=== PATIENT | male | born 1975 | race Caucasian/White ===

== ENCOUNTER 2018-10-30 18:53 | Observation (INO) ==
[2018-10-30] MEDS ORDERED: Sodium Chloride 0.9% 1,000 ML PRIMARY IV ONE ×2 (19:06→20:41)
[2018-10-30] MEDS ORDERED: ONDANSETRON 4 MG/2 ML VIAL IVP ONE (19:06)
[2018-10-30] MEDS ORDERED: FAMOTIDINE 20 MG/2 ML VIAL IVP ONE (19:06)
[2018-10-30 19:28] LABS: BASOPHILS # (AUTO) 0.03 10*3/UL; BASOPHILS % (AUTO) 0.3 % (0-1); EOSINOPHILS # (AUTO) 0.09 10*3/UL; EOSINOPHILS % (AUTO) 0.9 % (0-8); Hematocrit [HCT] 49.8 % (42.0-52.0); Hemoglobin [HGB] 18.3 g/dL (14.0-18.0); LYMPHOCYTES # (AUTO) 2.08 10*3/uL; MEAN CORPUSCULAR HGB CONC 36.7 g/dL (33-37); MEAN CORPUSCULAR VOLUME 76.1 FL (80-90); MEAN PLATELET VOLUME 9.6 FL (7.4-12.2); MONOCYTES # (AUTO) 0.85 10*3/UL (0.3-0.8); MONOCYTES % (AUTO) 8.6 % (5-15); NEUTROPHILS # (AUTO) 6.84 10*3/UL; RED BLOOD COUNT 6.54 10^6/uL (4.70-6.10)
[2018-10-30 19:33] LABS: PLATELET MORPHOLOGY COMMENT NORMAL MORPHOLOGY (NORM); RBC MORPHOLOGY COMMENT NORMAL MORPHOLOGY (NORM); WBC MORPHOLOGY COMMENT NORMAL MORPHOLOGY (NORM)
[2018-10-30 19:40] LABS: BUN/CREATININE RATIO 43.63 (6-20); SERUM ALBUMIN 5.6 g/dL (3.5-4.8)
--- NOTE | 2018-10-30 20:00 | PDOC ---
General Adult HPI - General Chief Complaint: Nausea / Vomiting / Diarrhea Stated Complaint: "I THINK I AM DEHYDRATED" Date Seen by Provider: 10/30/18 Time Seen by Provider: 19:00 Source: POSITIVE: Patient Exam Limitations: POSITIVE: No limitations Nurse's Notes Reviewed & Considered: Yes - History of Present Illness Initial Comment: The patient is a 43-year-old male who presents to the emergency department with increased nausea, lightheadedness and dehydration. 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 He underwent surgery and various treatments for this last year. For the past month or 6 weeks he has had increased nausea and vomiting. He has also lost approximately 30 pounds which he had previously gained back after all of his previous treatments. He was actually hospitalized at [facility] in [place] approximately 10 days ago. He underwent extensive workup there including imaging and endoscopies. He was told that they could not see any evidence of recurrent cancer. They thought maybe he had some type of strictures or partial obstruction causing his symptoms. He is scheduled to follow-up with his specialist in [place] tomorrow. The past couple of days however he has been feeling worse. He has been very lightheaded with standing and actually passed out once earlier today. He denies any increase in abdominal pain. He has not had any fevers or chills. He denies any urinary symptoms. He states he has had very little out in regard to bowel movements however his oral intake has been very minimal as well. Have you received a tetanus shot in the past 10 years?: Yes - Patient Home Medications Home Medications: Home Medications NK 10/30/18 - Patient Allergies Allergies/Adverse Reactions: Allergies Allergy/AdvReac Type Severity Reaction Status Date / Time No Known Allergies Allergy Verified 10/30/18 20:52 Past Medical History - shyla OLIVEIRA History: Denies History Cardiovascular History: Denies History Respiratory History: Denies History Gastrointestinal History: Denies History Genitourinary History: Denies History Endocrine History: Denies History Musculoskeletal History: Denies History Prosthesis or Implant: No Neurological History: Denies History Blood Disorders: Denies History Psychiatric History: Denies History History of Sexually Transmitted Diseases: No Cancer History: Other (please comment) History of MDRO: No History of Other Communicable Diseases: No In the Past 12 Months, Have Used or Abuse Any Substance: None Previous Surgical History: Yes Type / Date of Surgery: Mass removed the [id number] from the right side of the ABD. stent placement for ureter. colonoscopy Anesthesia Reactions: No Malignant Hyperthermia: No Significant Family History: No pertinent family hx Past Medical History Reviewed: Reviewed - No Changes ROS - Limitations ROS Limitations: No Limitations Constitution: DENIES: Chills, Fever Cardiovascular: REPORTS: Denies Cardiac Symptoms Respiratory: REPORTS: Denies Resp Symptoms Neurological: REPORTS: Denies Neuro Symptoms Gastrointestinal: REPORTS: Nausea, Vomitting. DENIES: Abdominal Pain, Diarrhea, Black Stools, Bloody Stools Endocrine: REPORTS: Fatigue Genitourinary: REPORTS: Denies Symptoms Eyes: REPORTS: Denies Symptoms ENT: REPORTS: Denies Symptoms Skin: DENIES: Rash General Adult Exam - General Appearance General Appearance: POSITIVE: Alert, Cooperative, No Acute Distress - HEENT HEENT: POSITIVE: Head Inspection Nml, Eyes Inspection Nml, Ears Inspection Nml, Nose Inspection Nml, Pharynx Inspect. Nml - Neck Neck: POSITIVE: Normal Inspection. NEGATIVE: Lymphadenopathy - Respiratory Respiratory: POSITIVE: No Respiratory Distress, Breath Sounds Normal - Cardiovascular Cardiovascular: POSITIVE: Regular Rate & Rhythm, No Murmur Peripheral Pulses: Dorsalis-pedis (R): 2+, Dorsalis-pedis (L): 2+ - Abdomen Abdomen: Soft: (All Quadrants), Denies Tenderness: (All Quadrants), No Guarding: (All Quadrants), No Rebound: (All Quadrants), No [place] Mass: (All Quadrants) Additional Abdominal Details: His abdomen is quite scaphoid, nontender on exam, bowel sounds are present. There is no palpable mass. - Skin Skin: POSITIVE: Normal Color, No Rash - Extremities Extremity: Normal ROM: (All Extremities), Normal Inspection: (All Extremities) - Neurological / Psychological Neurological: POSITIVE: Oriented X3, insulation worker interior surface Normal As Tested, Motor Normal, Sensation Normal General Adult Progress - Results Reviewed by me Xrays/CTs/US Reviewed by me: Yes Discussed with Radiologist: Yes Radiology Findings: CT the abdomen and pelvis shows a dilated duodenum suggestive of possible obstruction of the proximal small bowel, no other acute findings per radiologist. Lab Results Reviewed by Me: Yes Lab Results:: Laboratory Results 10/30/18 10/30/18 10/30/18 19:20 19:25 19:25 WBC 9.91 RBC 6.54 H Hgb 18.3 H Hct 49.8 MCV 76.1 L MCH 28.0 MCHC 36.7 RDW Std Deviation 39.3 RDW Coeff of Kimmy 14.1 Plt Count 260 MPV 9.6 Immature Gran % (Auto) 0.2 Neut % (Auto) 69.0 Lymph % (Auto) 21.0 Galax % (Auto) 8.6 Eos % (Auto) 0.9 Baso % (Auto) 0.3 Immature Gran # (Auto) 0.02 Neut # (Auto) 6.84 Lymph # (Auto) 2.08 Galax # (Auto) 0.85 H Eos # (Auto) 0.09 Baso # (Auto) 0.03 WBC Morphology Comment Normal morphology Plt Morphology Comment Normal morphology RBC Morph Comment Normal morphology VBG pH VBG pCO2 VBG HCO3 VBG Base Excess Sodium 129 L Potassium 2.5 L Chloride 64 L Carbon Dioxide 43 H Anion Gap 22 H BUN 96 H Creatinine 2.2 H Estimated GFR 33 BUN/Creatinine Ratio 43.63 H Glucose 129 H Calculated Osmolality 299.0 H Lactic Acid 2.8 H Calcium 10.1 Magnesium 3.5 H Total Bilirubin 4.9 H AST 98 H ALT 168 H Alkaline Phosphatase 260 H C-Reactive Protein 1.0 H Total Protein 10.0 H Albumin 5.6 H Globulin 4.4 H Albumin/Globulin Ratio 1.20 L Amylase 207 H Lipase 778 H Ur Collection Type Urine Color Urine Clarity Urine pH Ur Specific Goodman Urine Protein Urine Glucose (UA) Urine Ketones Urine Occult Blood Urine Nitrate Urine Bilirubin Urine Urobilinogen Ur Leukocyte Esterase Urine RBC Urine WBC Ur Squamous Epith Cells Ur Renal Epithelial Cell Urine Crystals Urine Bacteria Urine Casts Urine Mucus Urine Trichomonas Urine Yeast Ur Culture Indicated? 10/30/18 10/30/18 10/31/18 20:36 22:20 06:45 WBC 7.96 RBC 5.23 Hgb 14.7 Hct 41.5 L MCV 79.3 L MCH 28.1 MCHC 35.4 RDW Std Deviation 41.0 RDW Coeff of Kimmy 14.2 Plt Count 168 MPV 9.3 Immature Gran % (Auto) 0.1 Neut % (Auto) 68.8 Lymph % (Auto) 21.0 [place]ax % (Auto) 8.3 Eos % (Auto) 1.4 Baso % (Auto) 0.4 Immature Gran # (Auto) 0.01 Neut # (Auto) 5.48 Lymph # (Auto) 1.67 Galax # (Auto) 0.66 Eos # (Auto) 0.11 Baso # (Auto) 0.03 WBC Morphology Comment Normal morphology Plt Morphology Comment Normal morphology RBC Morph Comment Normal morphology VBG pH 7.64 H VBG pCO2 52 VBG HCO3 57 H VBG Base Excess 30 H Sodium Potassium Chloride Carbon Dioxide Anion Gap BUN Creatinine Estimated GFR BUN/Creatinine Ratio Glucose Calculated Osmolality Lactic Acid Calcium Magnesium Total Bilirubin AST ALT Alkaline Phosphatase C-Reactive Protein Total Protein Albumin Globulin Albumin/Globulin Ratio Amylase Lipase Ur Collection Type Voided specimen Urine Color Yellow Urine Clarity Clear Urine pH 7.0 Ur Specific Goodman 1.015 Urine Protein 30 A Urine Glucose (UA) Negative Urine Ketones 15 Urine Occult Blood Negative Urine Nitrate Negative Urine Bilirubin Small Urine Urobilinogen 0.2 Ur Leukocyte Esterase Negative Urine RBC None Urine WBC 0-2 Ur Squamous Epith Cells Rare Ur Renal Epithelial Cell None Urine Crystals None Urine Bacteria None Urine Casts Few Urine Mucus None Urine Trichomonas None Urine Yeast None Ur Culture Indicated? Culture not set 10/31/18 06:45 WBC RBC Hgb Hct MCV MCH MCHC RDW Std Deviation RDW Coeff of Kimmy Plt Count MPV Immature Gran % (Auto) Neut % (Auto) Lymph % (Auto) Galax % (Auto) Eos % (Auto) Baso % (Auto) Immature Gran # (Auto) Neut # (Auto) Lymph # (Auto) Galax # (Auto) Eos # (Auto) Baso # (Auto) WBC Morphology Comment Plt Morphology Comment RBC Morph Comment VBG pH VBG pCO2 VBG HCO3 VBG Base Excess Sodium 133 L Potassium 2.6 L Chloride 79 L Carbon Dioxide 42 H Anion Gap 12 BUN 78 H Creatinine 1.7 H Estimated GFR 44 BUN/Creatinine Ratio 45.88 H Glucose 99 Calculated Osmolality 298.0 H Lactic Acid Calcium 8.6 L Magnesium Total Bilirubin 3.1 H AST 64 H ALT 123 H Alkaline Phosphatase 159 H C-Reactive Protein Total Protein 7.1 Albumin 4.2 Globulin 2.9 Albumin/Globulin Ratio 1.40 Amylase 201 H Lipase 985 H Ur Collection Type Urine Color Urine Clarity Urine pH Ur Specific Goodman Urine Protein Urine Glucose (UA) Urine Ketones Urine Occult Blood Urine Nitrate Urine Bilirubin Urine Urobilinogen Ur Leukocyte Esterase Urine RBC Urine WBC Ur Squamous Epith Cells Ur Renal Epithelial Cell Urine Crystals Urine Bacteria Urine Casts Urine Mucus Urine Trichomonas Urine Yeast Ur Culture Indicated? CBC and BMP: 10/31/18 06:45 10/31/18 06:45 - Patient's Progress MDM / ED Course: The patient does appear to be dehydrated. He was given a 1 L bolus of normal saline. He was also given Zofran 4 mg IV and Pepcid 20 mg IV. After administration of the first liter of fluid the patient was feeling better. His blood work however shows multiple abnormalities. His white blood cell count was normal and his hemoglobin was 18. Sodium is 129, potassium 2.5, chloride of 64 with a carbon dioxide of 43. His magnesium is 3.5. BUN is 96 with a creatinine of 2.2. His bilirubin is elevated at 4.9 with an AST of 98 and an ALT of 168. His amylase is 207 with a lipase of 778. CT scan of the abdomen and pelvis showed normal-appearing gallbladder and bile ducts. He did have evidence of dilated duodenum concerning for possible proximal bowel obstruction per radiologist. Because of the patient's marked electrolyte abnormalities he did receive potassium chloride 20 mEq IV. He also received a second liter of normal saline and then was switched to an S with 20 of K at 150 mL's an hour. I did discuss the patient with Dr. Christopher and he recommended transfer to tertiary care. The patient has a surgeon in [place] and would prefer to [place] where his surgeon works. I subsequently contacted [facility] with the [facility] in [place] where he had his previous surgery. I did discuss the patient with Dr. Jones from the hospitalist service and she has agreed to accept the chitra ent in transfer. The hospital however is tight on beds and cannot accept the patient currently. I did contact Dr. Christopher about possibly admitting the patient here until he can be transferred however he recommended that the patient be held in the emergency department until transfer was available. The patient will be held here in the emergency department on current IV and electrolyte replacement treatment. Will plan on repeating labs in the morning if he is still here in the emergency department. Will transfer to the hospital in [place] once a bed becomes available. Blood work was checked at 6:30 AM. His electrolytes are improving. His potassium remains low at 2.6. His liver enzymes of all come down some. Pancreas enzymes reveal a lipase which is slightly higher at 900 and amylase bernarda t remains the same at 200. I contacted the transfer center for [facility] in [place] and they are still awaiting a bed opening up and were unsure of the timing of that. I did discuss the patient with Dr. Blair and he has agreed to admit the patient until transfer is possible. These findings and recomme ndations were discussed with the patient and his and they're in agreement with this plan. - Consult Counseled: POSITIVE: Patient, Family, RE: Lab Results, RE: Radiology Results, RE: DX Patient Care Time - Estimated PCT Patient Care Time (In Minutes): 75 Vital Signs - Recent Vital Signs Vital Signs: Vital Signs (Last 8 hours) Pulse Resp BP Pulse Ox 10/31/18 02:52 72 14 120/75 94 - VS Reviewed Vital Signs Reviewed: Yes Discharge Clinical Impression: Dehydration, Hyponatremia, Hypokalemia, Renal failure, Nausea and vomiting, Elevated liver enzymes, Small bowel obstruction, partial Discharge Disposition: Admit to Observation Condition: Fair Follow Up With: NONE,NONE [Primary Care Provider] -
[2018-10-30 20:39] LABS: VENOUS PH 7.64 (7.32-7.42)
--- NOTE | 2018-10-30 21:58 | DI ---
EXAM: CT Abdomen and Pelvis Without Intravenous Contrast CLINICAL HISTORY: Nausea and vomiting with elevated pancreatic enzymes and LFTs TECHNIQUE: Axial computed tomography images of the abdomen and pelvis without intravenous contrast. COMPARISON: CT abdomen and pelvis dated 10/14/2017 FINDINGS: Limitations: Limited study secondary to lack of IV contrast. Lung bases: Unremarkable. No mass. No consolidation. ABDOMEN: Liver: Unremarkable. Gallbladder and bile ducts: Unremarkable. Pancreas: Unremarkable. Spleen: Unremarkable. Adrenals: Unremarkable. Kidneys and ureters: Unremarkable. Stomach and bowel: Status post right hemicolectomy and appendectomy. Dilated duodenum to level of the jejunum. The distal small bowel is relatively decompressed. Question bowel obstruction at the level of the proximal jejunum. PELVIS: Appendix: See above. Bladder: Unremarkable. Reproductive: Unremarkable as visualized. ABDOMEN and PELVIS: Intraperitoneal space: Unremarkable. Bones/joints: No acute fracture. No dislocation. Soft tissues: Unremarkable. Vasculature: Unremarkable. No abdominal aortic aneurysm. Lymph nodes: Unremarkable. IMPRESSION: 1. Status post right hemicolectomy and appendectomy. 2. Dilated duodenum to level of the jejunum. The distal small bowel is relatively decompressed. Question bowel obstruction at the level of the proximal jejunum.
[2018-10-30 22:26] LABS: BILIRUBIN,URINE SMALL (NEG); CLARITY,URINE CLEAR (CLEAR); COLOR,URINE YELLOW (Y); GLUCOSE, URINE (UA) NEGATIVE (NEG); OCCULT BLOOD,URINE NEGATIVE (NEG); PROTEIN,URINE 30 mg/dl (NEG); UROBILINOGEN,URINE 0.2 EU/dL (0.2)
[2018-10-30 22:31] LABS: SQUAMOUS EPITHELIAL CELL,UR RARE; URINE CASTS FEW; URINE SAMPLE TYPE VOIDED SPECIMEN; WBC,URINE 0-2
[2018-10-31 06:58] LABS: BASOPHILS # (AUTO) 0.03 10*3/UL; BASOPHILS % (AUTO) 0.4 % (0-1); EOSINOPHILS # (AUTO) 0.11 10*3/UL; EOSINOPHILS % (AUTO) 1.4 % (0-8); Hematocrit [HCT] 41.5 % (42.0-52.0); Hemoglobin [HGB] 14.7 g/dL (14.0-18.0); LYMPHOCYTES # (AUTO) 1.67 10*3/uL; MEAN CORPUSCULAR HEMOGLOBIN 28.1 PG (27-31); MEAN CORPUSCULAR HGB CONC 35.4 g/dL (33-37); MEAN CORPUSCULAR VOLUME 79.3 FL (80-90); MEAN PLATELET VOLUME 9.3 FL (7.4-12.2); MONOCYTES # (AUTO) 0.66 10*3/UL (0.3-0.8); MONOCYTES % (AUTO) 8.3 % (5-15); NEUTROPHILS # (AUTO) 5.48 10*3/UL; NEUTROPHILS % (AUTO) 68.8 % (50-80); RED BLOOD COUNT 5.23 10^6/uL (4.70-6.10)
[2018-10-31 07:02] LABS: PLATELET MORPHOLOGY COMMENT NORMAL MORPHOLOGY (NORM); RBC MORPHOLOGY COMMENT NORMAL MORPHOLOGY (NORM); WBC MORPHOLOGY COMMENT NORMAL MORPHOLOGY (NORM)
[2018-10-31 07:04] LABS: BUN/CREATININE RATIO 45.88 (6-20); SERUM ALBUMIN 4.2 g/dL (3.5-4.8)
[2018-10-31] MEDS ORDERED: Sodium Chloride 0.9% 1,000 ML PRIMARY IV SCH (10:34)
[2018-10-31] MEDS ORDERED: DOCUSATE 100 MG CAPSULE PO PRN (10:34)
[2018-10-31] MEDS ORDERED: ACETAMINOPHEN 325 MG TABLET PO PRN (10:34)
[2018-10-31] MEDS ORDERED: CALCIUM CARBONATE 500 MG (TUMS) CHEWABLE TABLET PO PRN (10:34)
[2018-10-31] MEDS ORDERED: LIDOCAINE W/ SODIUM BICARB 0.5 ML SYR SUBD PRN (10:34)
[2018-10-31] MEDS ORDERED: HYDROmorphone 2 MG/1 ML IVP PRN (10:34)
[2018-10-31] MEDS ORDERED: ONDANSETRON 4 MG/2 ML VIAL IVP PRN (10:34)
[2018-10-31 12:50] VITALS: O2SAT 98
--- NOTE | 2018-10-31 13:02 | PDOC ---
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 He was originally diagnosed in July 2017, and has been doing very well since that time. About a month ago, he weighed around 175 pounds, and he started having some vomiting. He had a lot of bilious nausea and vomiting and some abdominal pain mostly in the epigastric region. He saw his oncologist about this in [place], and eventually was admitted to [facility] and they told him that he had some small ulcers that they put him on a proton pump inhibitor for, but his symptoms did not stop. They did some follow-through studies that show that everything was passing through. He states to me that he's had continuous, bilious nausea and vomiting since that time. He continues to lose weight. He denies fevers, chills, cough, or infectious symptoms otherwise. He states he is passing gas. He came into the emergency room last night not feeling well accompanied by his and father, and was found to have multiple electrolyte abnormalities. He was a ctually accepted for transfer to [facility] for further evaluation by his surgery team there, but the patient was still waiting for bed early this morning so the decision was made to observe him in the hospital until a bed opened up at [facility]. His electrolytes are improving somewhat and his creatinine has improved from admission as well. He was found to be in renal failure and was found to be hypokalemic as well as having elevated liver enzymes and an elevated lipase at the time of admission. A CT scan showed a dilated duodenum to the level of the jejunum with the thought that there could be a proximal jejunal obstruction. The patient just feels like he is probably having some adhesions as a consequence of his HIPEC therapy. He was told that adhesions and obstructions could be prominent as a result of this chemotherapy in the past. He states antibiotics in the emergency room really did help. Past Medical History Medical History: 1. 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 Those relating to appendiceal cancer. 2. Ureteral stent. 3. Partial colon removal in the setting of original diagnosis of appendiceal c ancer Pertinent Family History: Has a paternal uncle who had heart disease. Parents are described as healthy Past Social History: for 17 years, has 2 children, healthy. Works as a principal for the local middle school. Does not smoke or drink alcohol. Tobacco Use: Never Smoker In the Past 12 Months, Have Used or Abuse Any of the Following Substance: None Alcohol Use: None Medication / Allergies Home Medications: Home Medications Medication Instructions Recorded Confirmed Type NK 10/30/18 10/30/18 History Allergies/Adverse Reactions: Allergies Allergy/AdvReac Type Severity Reaction Status Date / Time No Known Allergies Allergy Verified 10/30/18 20:52 Review of Systems - Review of Systems All Systems: Reviewed & No Additional Complaints Except as Stated (I did a 12 point review systems and it was negative other than that discussed below and in the history of present illness.) Exam - Vitals Vital Signs: Vital Signs Temperature 97.8 F Temperature Source Temporal Artery Scan Pulse Rate [Pulse Oximeter] 59 Pulse Rate 60 Respiratory Rate 18 Blood Pressure [Right Arm] 123/73 Blood Pressure [Left Arm] 104/75 Pulse Ox 98 Oxygen Delivery Method Room Air Height 6 ft Weight 145 lb - General General Appearance: No Acute Distress, Cooperative, Thin - Head Head Exam: Normal Inspection, Normocephalic, Atraumatic - Eye Eye Exam: POSITIVE: No Scleral Icterus - ENT ENT Exam: POSITIVE: Mucous Membranes Moist - Neck Neck Exam: Normal Inspection, No Tenderness, No Lymphadenopathy, No Thyromegaly, JVP is not Raised - Respiratory Respiratory Exam: POSITIVE: Clear to Auscultation - Bilaterally, Breathing Non Labored, Normal to Percussion and Palpation - Cardiovascular Cardiovascular Exam: POSITIVE: RRR, No Murmur, No Clicks, No Gallops, No Rubs, No JVD - GI/Abdominal GI/Abdominal Exam: POSITIVE: Normal Bowel Sounds, Non Tender, Non Distended, Soft - Rectal Rectal Exam: POSITIVE: Deferred - External Exam: POSITIVE: Deferred Exam: POSITIVE: Deferred - Extremities Extremities Exam: POSITIVE: No Clubbing Present, No Edema Present, No Cyanosis Present - Back Back Exam: POSITIVE: No CVA Tenderness - Neurological Neurological Exam: POSITIVE: Alert, Oriented x 3, No Facial Droop, Speech Intact / Clear, Moves All Extremities Equally - Psychiatric Psychiatric Exam: POSITIVE: Normal Affect, Normal Mood Results - Labs CBC and BMP: 10/31/18 06:45 10/31/18 06:45 Additional Lab Results: Laboratory Results 10/30/18 10/30/18 10/30/18 19:20 19:25 19:25 WBC 9.91 RBC 6.54 H Hgb 18.3 H Hct 49.8 MCV 76.1 L MCH 28.0 MCHC 36.7 RDW Std Deviation 39.3 RDW Coeff of Kimmy 14.1 Plt Count 260 MPV 9.6 Immature Gran % (Auto) 0.2 Neut % (Auto) 69.0 Lymph % (Auto) 21.0 [place] % (Auto) 8.6 Eos % (Auto) 0.9 Baso % (Auto) 0.3 Immature Gran # (Auto) 0.02 Neut # (Auto) 6.84 Lymph # (Auto) 2.08 [place] # (Auto) 0.85 H Eos # (Auto) 0.09 Baso # (Auto) 0.03 WBC Morphology Comment Normal morphology Plt Morphology Comment Normal morphology RBC Morph Comment Normal morphology VBG pH VBG pCO2 VBG HCO3 VBG Base Excess Sodium 129 L Potassium 2.5 L Chloride 64 L Carbon Dioxide 43 H Anion Gap 22 H BUN 96 H Creatinine 2.2 H Estimated GFR 33 BUN/Creatinine Ratio 43.63 H Glucose 129 H Calculated Osmolality 299.0 H Lactic Acid 2.8 H Calcium 10.1 Magnesium 3.5 H Total Bilirubin 4.9 H AST 98 H ALT 168 H Alkaline Phosphatase 260 H C-Reactive Protein 1.0 H Total Protein 10.0 H Albumin 5.6 H Globulin 4.4 H Albumin/Globulin Ratio 1.20 L Amylase 207 H Lipase 778 H Ur Collection Type Urine Color Urine Clarity Urine pH Ur Specific [place] Urine Protein Urine Glucose (UA) Urine Ketones Urine Occult Blood Urine Nitrate Urine Bilirubin Urine Urobilinogen Ur Leukocyte Esterase Urine RBC Urine WBC Ur Squamous Epith Cells Ur Renal Epithelial Cell Urine Crystals Urine Bacteria Urine Casts Urine Mucus Urine Trichomonas Urine Yeast Ur Culture Indicated? 10/30/18 10/30/18 10/31/18 20:36 22:20 06:45 WBC 7.96 RBC 5.23 Hgb 14.7 Hct 41.5 L MCV 79.3 L MCH 28.1 MCHC 35.4 RDW Std Deviation 41.0 RDW Coeff of Kimmy 14.2 Plt Count 168 MPV 9.3 Immature Gran % (Auto) 0.1 Neut % (Auto) 68.8 Lymph % (Auto) 21.0 [place] % (Auto) 8.3 Eos % (Auto) 1.4 Baso % (Auto) 0.4 Immature Gran # (Auto) 0.01 Neut # (Auto) 5.48 Lymph # (Auto) 1.67 [place] # (Auto) 0.66 Eos # (Auto) 0.11 Baso # (Auto) 0.03 WBC Morphology Comment Normal morphology Plt Morphology Comment Normal morphology RBC Morph Comment Normal morphology VBG pH 7.64 H VBG pCO2 52 VBG HCO3 57 H VBG Base Excess 30 H Sodium Potassium Chloride Carbon Dioxide Anion Gap BUN Creatinine Estimated GFR BUN/Creatinine Ratio Glucose Calculated Osmolality Lactic Acid Calcium Magnesium Total Bilirubin AST ALT Alkaline Phosphatase C-Reactive Protein Total Protein Albumin Globulin Albumin/Globulin Ratio Amylase Lipase Ur Collection Type Voided specimen Urine Color Yellow Urine Clarity Clear Urine pH 7.0 Ur Specific [place] 1.015 Urine Protein 30 A Urine Glucose (UA) Negative Urine Ketones 15 Urine Occult Blood Negative Urine Nitrate Negative Urine Bilirubin Small Urine Urobilinogen 0.2 Ur Leukocyte Esterase Negative Urine RBC None Urine WBC 0-2 Ur Squamous Epith Cells Rare Ur Renal Epithelial Cell None Urine Crystals None Urine Bacteria None Urine Casts Few Urine Mucus None Urine Trichomonas None Urine Yeast None Ur Culture Indicated? Culture not set 10/31/18 06:45 WBC RBC Hgb Hct MCV MCH MCHC RDW Std Deviation RDW Coeff of Kimmy Plt Count MPV Immature Gran % (Auto) Neut % (Auto) Lymph % (Auto) [place] % (Auto) Eos % (Auto) Baso % (Auto) Immature Gran # (Auto) Neut # (Auto) Lymph # (Auto) [place] # (Auto) Eos # (Auto) Baso # (Auto) WBC Morphology Comment Plt Morphology Comment RBC Morph Comment VBG pH VBG pCO2 VBG HCO3 VBG Base Excess Sodium 133 L Potassium 2.6 L Chloride 79 L Carbon Dioxide 42 H Anion Gap 12 BUN 78 H Creatinine 1.7 H Estimated GFR 44 BUN/Creatinine Ratio 45.88 H Glucose 99 Calculated Osmolality 298.0 H Lactic Acid Calcium 8.6 L Magnesium Total Bilirubin 3.1 H AST 64 H ALT 123 H Alkaline Phosphatase 159 H C-Reactive Protein Total Protein 7.1 Albumin 4.2 Globulin 2.9 Albumin/Globulin Ratio 1.40 Amylase 201 H Lipase 985 H Ur Collection Type Urine Color Urine Clarity Urine pH Ur Specific [place] Urine Protein Urine Glucose (UA) Urine Ketones Urine Occult Blood Urine Nitrate Urine Bilirubin Urine Urobilinogen Ur Leukocyte Esterase Urine RBC Urine WBC Ur Squamous Epith Cells Ur Renal Epithelial Cell Urine Crystals Urine Bacteria Urine Casts Urine Mucus Urine Trichomonas Urine Yeast Ur Culture Indicated? - Imaging Status: Report Reviewed by Me (There are some dilated loops of bowel. The distal small bowel appears of normal caliber. The radiologist report suggested that there could be a possible proximal jejunal obstruction.) Assessment and Plan - Patient Problems (1) Small bowel obstruction Current Visit: Yes Status: Acute Code(s): K56.609 - Unspecified intestinal obstruction, unspecified as to partial versus complete obstruction (2) Renal failure Current Visit: Yes Status: Acute Code(s): N19 - Unspecified kidney failure Qualifiers: Renal failure chronicity: acute Acute renal failure type: unspecified Qualified Code(s): N17.9 - Acute kidney failure, unspecified (3) Hypokalemia Current Visit: Yes Status: Acute Code(s): E87.6 - Hypokalemia (4) Nausea and vomiting Current Visit: Yes Status: Acute Code(s): R11.2 - Nausea with vomiting, unspecified (5) History of malignant neoplasm of appendix Current Visit: Yes Status: Acute Code(s): Z85.09 - Personal history of malignant neoplasm of other digestive organs - Assessment / Plan Additional Assessment/Plan Details: We will admit the patient for observation while awaiting a bed at [facility]. Replace electrolytes, continue normal saline as the patient is prerenal azotemia, with hyponatremia and appears to be hypovolemic hyponatremia Recheck labs, in particular electrolytes at around 2:00. I will write for antiemetics. We'll offer the patient a NG tube but will require less he feels it will be helpful. With this being a proximal obstruction this may be helpful. Full code. Plan above discussed with patient and his and they agreed with the plan.
[2018-10-31] MEDS ORDERED: PANTOPRAZOLE IV 40 MG VIAL IVP ONE (13:21)
--- NOTE | 2018-10-31 14:07 | DCSUMMARY ---
Hospitalization Summary Admit Date: 10/31/2018 Discharge Date: 10/31/18 Primary Diagnosis:: proximal small bowel obstruction, jejunum Secondary Diagnosis:: Multiple electrolyte abnormalities, severe dehydration Hospital Course: This very pleasant 43-year-old male that was admitted for observation after an apparent acceptance at [facility] after he came in with significant ileus nausea and vomiting, dehydration, electrolyte abnormalities, acute renal failure related to prerenal azotemia, and minimal help with recently started Protonix. He apparently had a workup in the last month that [facility] that showed some small ulcers for which he was placed on proton pump inhibitor. It did not help his vomiting, and he showed up last night. He was found to have multiple electrolyte abnormalities including a low sodium, low chloride, low potassium, and elevated creatinine suggestive of prerenal azotemia/acute renal failure. He was hydrated, electrolyte replaced, and the patient spent about 14 hours in the emergency room. He is admitted to the hospitalist service for observation with the understanding that a bed was obtained at [facility] when it opened up. Upon review of the data in the records including the CT scan, and it does appear that the patient has a proximal jejunal obstruction. Although the patient is still passing gas is not had any bowel movements. Clinically it seems to match bowel obstruction versus anything else. I spoke to 3 physicians at [facility]. Finally I spoke to Dr. Newberry (may have misspelled?) And he felt that the patient needed to be accepted down there given his unique treatment of HIPEC therapy for his appendiceal cancer in the past. Apparently this makes it more likely for the patient to obstruct I'm told. There were no other methods of transport available, ambulance as were all in use, and the only option for getting the patient down in a safe fashion would be to fly the patient down. Given that this is a bowel obstruction, he has medical necessity to be seen, and needs this evaluated by a surgeon with the utmost importance. It is totally and completely necessary to have flight transfer this patient down for further evaluation. We explored all options locally and regionally for transport. Currently, we will place an NG tube down. We have the patient on Protonix. We have replaced on the floor with 20 mEq of potassium and have another 20 mEq ordered. We have repeat labs ordered. His initial lactic acid was slightly elevated and I'll recheck that as well. Although the patient looks relatively well for having a bowel obstruction in such severe dehydration, I think some of this is due to his use and lack of other medical issues. He denies any chest pain or shortness of breath. Assessment and Plan: 1. As per discharge assessments noted 2. Disposition: Patient is discharged to [facility] 3. Condition on discharge, stabilized I believe to the best of my ability that I could during the time I had with the patient, but certainly with bowel obstruction, he could deteriorate. 4. Diet: Nothing by mouth 5. Activities: As per providers/physicians at [facility] 6. Follow-Up: 1. The patient sees Dr. Ortega at [facility] in [place] 7. Medications at the Time of Discharge: Active Medications Generic Name Dose Route Start Last Admin Trade Name Freq PRN Reason Stop Dose Admin Acetaminophen 650 mg 10/31/18 10:34 Tylenol PO Q6H PRN Pain or Fever Calcium Carbonate 1 - 2 tab 10/31/18 10:34 Tums PO Q6H PRN Heartburn Hydromorphone HCl 1 mg 10/31/18 10:34 Dilaudid Inj IVP Q3H PRN Pain Sodium Chloride 25 mls @ 200 mls/hr 10/31/18 10:34 Normal Saline 0.9% IV .Post Infusion PRN No Primary IV for Flush ONLY Sodium Chloride 1,000 mls @ 125 mls/hr 10/31/18 10:34 10/31/18 12:20 Normal Saline PRIMARY IV 125 mls/hr .Q8H MIKE Administration Potassium Chloride 20 meq in 100 mls @ 50 mls/hr 10/31/18 12:56 Potassium Chloride 20 Meq IV 10/31/18 14:55 ONCE ONE Lidocaine HCl 0.5 ml 10/31/18 10:34 Lidocaine Buffered Inj SUBD ONCE PRN IV Starts Ondansetron HCl 4 mg 10/31/18 10:34 Zofran Inj IVP Q4H PRN NAUSEA / VOMITING Pantoprazole Sodium 40 mg 11/01/18 09:00 Protonix Inj IVP DAILY MIKE 8. Time, care, counseling and coordination of care for this discharge is greater than 30 minutes. Exam - Vitals Vital Signs: Vital Signs Temperature 97.8 F Temperature Source Temporal Artery Scan Pulse Rate [Pulse Oximeter] 59 Pulse Rate 60 Respiratory Rate 18 Blood Pressure [Right Arm] 123/73 Blood Pressure [Left Arm] 104/75 Pulse Ox 98 Oxygen Delivery Method Room Air Height 6 ft Weight 145 lb - General General Appearance: No Acute Distress, Cooperative - Eye Eye Exam: POSITIVE: No Scleral Icterus - Respiratory Respiratory Exam: POSITIVE: Clear to Auscultation - Bilaterally, Breathing Non Labored - Cardiovascular Cardiovascular Exam: POSITIVE: RRR, No Murmur, No Clicks, No Gallops, No Rubs, No JVD - GI/Abdominal GI/Abdominal Exam: POSITIVE: Normal Bowel Sounds, Non Tender, Non Distended, Soft - Extremities Extremities Exam: POSITIVE: No Clubbing Present, No Edema Present, No Cyanosis Present - Neurological Neurological Exam: POSITIVE: Alert, Oriented x 3, No Facial Droop, Speech Intact / Clear, Moves All Extremities Equally - Psychiatric Psychiatric Exam: POSITIVE: Normal Affect, Normal Mood Data Peritnent Studies: Laboratory Results 10/30/18 10/30/18 10/30/18 19:20 19:25 19:25 WBC 9.91 RBC 6.54 H Hgb 18.3 H Hct 49.8 MCV 76.1 L MCH 28.0 MCHC 36.7 RDW Std Deviation 39.3 RDW Coeff of Kimmy 14.1 Plt Count 260 MPV 9.6 Immature Gran % (Auto) 0.2 Neut % (Auto) 69.0 Lymph % (Auto) 21.0 [place] % (Auto) 8.6 Eos % (Auto) 0.9 Baso % (Auto) 0.3 Immature Gran # (Auto) 0.02 Neut # (Auto) 6.84 Lymph # (Auto) 2.08 [place] # (Auto) 0.85 H Eos # (Auto) 0.09 Baso # (Auto) 0.03 WBC Morphology Comment Normal morphology Plt Morphology Comment Normal morphology RBC Morph Comment Normal morphology VBG pH VBG pCO2 VBG HCO3 VBG Base Excess Sodium 129 L Potassium 2.5 L Chloride 64 L Carbon Dioxide 43 H Anion Gap 22 H BUN 96 H Creatinine 2.2 H Estimated GFR 33 BUN/Creatinine Ratio 43.63 H Glucose 129 H Calculated Osmolality 299.0 H Lactic Acid 2.8 H Calcium 10.1 Magnesium 3.5 H Total Bilirubin 4.9 H AST 98 H ALT 168 H Alkaline Phosphatase 260 H C-Reactive Protein 1.0 H Total Protein 10.0 H Albumin 5.6 H Globulin 4.4 H Albumin/Globulin Ratio 1.20 L Amylase 207 H Lipase 778 H Ur Collection Type Urine Color Urine Clarity Urine pH Ur Specific [place] Urine Protein Urine Glucose (UA) Urine Ketones Urine Occult Blood Urine Nitrate Urine Bilirubin Urine Urobilinogen Ur Leukocyte Esterase Urine RBC Urine WBC Ur Squamous Epith Cells Ur Renal Epithelial Cell Urine Crystals Urine Bacteria Urine Casts Urine Mucus Urine Trichomonas Urine Yeast Ur Culture Indicated? 10/30/18 10/30/18 10/31/18 20:36 22:20 06:45 WBC 7.96 RBC 5.23 Hgb 14.7 Hct 41.5 L MCV 79.3 L MCH 28.1 MCHC 35.4 RDW Std Deviation 41.0 RDW Coeff of Kimmy 14.2 Plt Count 168 MPV 9.3 Immature Gran % (Auto) 0.1 Neut % (Auto) 68.8 Lymph % (Auto) 21.0 [place] % (Auto) 8.3 Eos % (Auto) 1.4 Baso % (Auto) 0.4 Immature Gran # (Auto) 0.01 Neut # (Auto) 5.48 Lymph # (Auto) 1.67 [place] # (Auto) 0.66 Eos # (Auto) 0.11 Baso # (Auto) 0.03 WBC Morphology Comment Normal morphology Plt Morphology Comment Normal morphology RBC Morph Comment Normal morphology VBG pH 7.64 H VBG pCO2 52 VBG HCO3 57 H VBG Base Excess 30 H Sodium Potassium Chloride Carbon Dioxide Anion Gap BUN Creatinine Estimated GFR BUN/Creatinine Ratio Glucose Calculated Osmolality Lactic Acid Calcium Magnesium Total Bilirubin AST ALT Alkaline Phosphatase C-Reactive Protein Total Protein Albumin Globulin Albumin/Globulin Ratio Amylase Lipase Ur Collection Type Voided specimen Urine Color Yellow Urine Clarity Clear Urine pH 7.0 Ur Specific [place] 1.015 Urine Protein 30 A Urine Glucose (UA) Negative Urine Ketones 15 Urine Occult Blood Negative Urine Nitrate Negative Urine Bilirubin Small Urine Urobilinogen 0.2 Ur Leukocyte Esterase Negative Urine RBC None Urine WBC 0-2 Ur Squamous Epith Cells Rare Ur Renal Epithelial Cell None Urine Crystals None Urine Bacteria None Urine Casts Few Urine Mucus None Urine Trichomonas None Urine Yeast None Ur Culture Indicated? Culture not set 10/31/18 06:45 WBC RBC Hgb Hct MCV MCH MCHC RDW Std Deviation RDW Coeff of Kimmy Plt Count MPV Immature Gran % (Auto) Neut % (Auto) Lymph % (Auto) [place] % (Auto) Eos % (Auto) Baso % (Auto) Immature Gran # (Auto) Neut # (Auto) Lymph # (Auto) [place] # (Auto) Eos # (Auto) Baso # (Auto) WBC Morphology Comment Plt Morphology Comment RBC Morph Comment VBG pH VBG pCO2 VBG HCO3 VBG Base Excess Sodium 133 L Potassium 2.6 L Chloride 79 L Carbon Dioxide 42 H Anion Gap 12 BUN 78 H Creatinine 1.7 H Estimated GFR 44 BUN/Creatinine Ratio 45.88 H Glucose 99 Calculated Osmolality 298.0 H Lactic Acid Calcium 8.6 L Magnesium Total Bilirubin 3.1 H AST 64 H ALT 123 H Alkaline Phosphatase 159 H C-Reactive Protein Total Protein 7.1 Albumin 4.2 Globulin 2.9 Albumin/Globulin Ratio 1.40 Amylase 201 H Lipase 985 H Ur Collection Type Urine Color Urine Clarity Urine pH Ur Specific [place] Urine Protein Urine Glucose (UA) Urine Ketones Urine Occult Blood Urine Nitrate Urine Bilirubin Urine Urobilinogen Ur Leukocyte Esterase Urine RBC Urine WBC Ur Squamous Epith Cells Ur Renal Epithelial Cell Urine Crystals Urine Bacteria Urine Casts Urine Mucus Urine Trichomonas Urine Yeast Ur Culture Indicated? Procedures: [address] Medicine[address] [facility] [place] [id number] PH: DD: [phone] FAX: [phone] ~DIAGNOSTIC IMAGING REPORT~ Patient: Earl Nelson : 1975 Sex: M Age: 43 Exam Name: CT Abdomen/Pelvis WO Contrast Exam Date: 10/30/18 Report # : [id number] CPT Code: 00724 EMR/MR #: [id number] Ordering: CHANTE ROJAS Admiting: Primary: NONE,NONE Attending: Signed EXAM: CT Abdomen and Pelvis Without Intravenous Contrast CLINICAL HISTORY: Nausea and vomiting with elevated pancreatic enzymes and LFTs TECHNIQUE: Axial computed tomography images of the abdomen and pelvis without intravenous contrast. COMPARISON: CT abdomen and pelvis dated 10/14/2017 FINDINGS: Limitations: Limited study secondary to lack of IV contrast. Lung bases: Unremarkable. No mass. No consolidation. ABDOMEN: Liver: Unremarkable. Gallbladder and bile ducts: Unremarkable. Pancreas: Unremarkable. Spleen: Unremarkable. Adrenals: Unremarkable. Kidneys and ureters: Unremarkable. Stomach and bowel: Status post right hemicolectomy and appendectomy. Dilated duodenum to level of the jejunum. The distal small bowel is relatively decompressed. Question bowel obstruction at the level of the proximal jejunum. PELVIS: Appendix: See above. Bladder: Unremarkable. Reproductive: Unremarkable as visualized. ABDOMEN and PELVIS: Intraperitoneal space: Unremarkable. Bones/joints: No acute fracture. No dislocation. Soft tissues: Unremarkable. Vasculature: Unremarkable. No abdominal aortic aneurysm. Lymph nodes: Unremarkable. IMPRESSION: 1. Status post right hemicolectomy and appendectomy. 2. Dilated duodenum to level of the jejunum. The distal small bowel is relatively decompressed. Question bowel obstruction at the level of the proximal jejunum. Dictated By: Chante Dubose MD Signed By: 10/30/18 2158 Chante Dubose MD Patient Problems - Patient Problem List (1) Small bowel obstruction Current Visit: Yes Status: Acute Code(s): K56.609 - Unspecified intestinal obstruction, unspecified as to partial versus complete obstruction Category: Medical (2) Renal failure Current Visit: Yes Status: Acute Code(s): N19 - Unspecified kidney failure Qualifiers: Renal failure chronicity: acute Acute renal failure type: unspecified Qualified Code(s): N17.9 - Acute kidney failure, unspecified Category: Medical (3) Hypokalemia Current Visit: Yes Status: Acute Code(s): E87.6 - Hypokalemia Category: Medical (4) Nausea and vomiting Current Visit: Yes Status: Acute Code(s): R11.2 - Nausea with vomiting, unspecified Category: Medical (5) History of malignant neoplasm of appendix Current Visit: Yes Status: Acute Code(s): Z85.09 - Personal history of malignant neoplasm of other digestive organs Category: Medical
[2018-10-31 14:12] VITALS: BP 121/71; RESP 16; TEMP 97.6
[2018-10-31 14:34] LABS: BUN/CREATININE RATIO 45.71 (6-20); SERUM ALBUMIN 4.1 g/dL (3.5-4.8)
--- NOTE | 2018-10-31 15:01 | DI ---
XR ABDOMEN (KUB) FLAT 1VIEW,10/31/2018 2:18 PM: Clinical History: Small bowel obstruction and placement of nasogastric tube Previous Exam: None at this facility. Findings: A single frontal radiograph of the abdomen is obtained, and demonstrates a new enteric tube with the tip in the upper stomach. Postsurgical changes are seen in the right paraspinal soft tissues. Overlyi ng EKG leads are noted. There is no subdiaphragmatic free air in the lung bases are clear. Impression: New nasogastric tube with the tip in good position.
[2018-11-01] MEDS ORDERED: PANTOPRAZOLE IV 40 MG VIAL IVP SCH (09:00)
== END 2018-10-31 15:09 | disposition short-term general hospital (02) ==
LOC: MED/SURG 18:53 → ER 18:53 → MED/SURG 10-31 10:25
PROVIDERS: ADMIT Family Medicine; ATTEND Family Medicine

== ENCOUNTER 2019-01-17 15:05 | Inpatient (IN) ==
--- NOTE | 2019-01-17 15:08 | PDOC ---
Abdomen/Flank HPI - General Chief Complaint: Abdomen Pain Stated Complaint: abd pain Date Seen by Provider: 01/17/19 Time Seen by Provider: 15:08 Source: POSITIVE: Patient, Spouse Exam Limitations: POSITIVE: No limitations Nurse's Notes Reviewed & Considered: Yes - Record Incomplete - History of Present Illness Initial Comments: 43 yo male presents to ED for second time today. 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 Patient has a gastric tube for drainage because his disease prevents passage from stomach to duodenum. Patient returns to ED today with worsening abdominal pain. He is unable to take oral pain medication because of his metastatic disease. He states the pain is radiating into his back. Reports nausea. States the pain first started this morning. Denies fevers/chills. Denies CP/SOB. Patient is on TPN feedings. He is not getting chemotherapy nor radiation and hasn't been getting it since this past fall. He states he see's Dr. Jiang in [place] for his oncology care. He was told by surgeons in [place] that he is no longer a surgical candidate. - Patient Home Medications Home Medications: Home Medications NK 10/30/18 - Patient Allergies Allergies/Adverse Reactions: Allergies Allergy/AdvReac Type Severity Reaction Status Date / Time hydrocodone AdvReac Vomiting Verified 01/17/19 18:01 Past Medical History - shyla OLIVEIRA History: Denies History Cardiovascular History: Denies History Respiratory History: Denies History Gastrointestinal History: Small Bowel Obstruction, Other (please comment) Additional Gastrointestinal History: Esophageal Ulcer. Appendix cancer with mets to peritoneal tissue. G-tube placement Genitourinary History: Denies History Endocrine History: Denies History Musculoskeletal History: Denies History Prosthesis or Implant: No Neurological History: Denies History Blood Disorders: Denies History Psychiatric History: Denies History History of Sexually Transmitted Diseases: No Cancer History: Other (please comment) History of MDRO: No History of Other Communicable Diseases: No In the Past 12 Months, Have Used or Abuse Any Substance: None Previous Surgical History: Yes Type / Date of Surgery: mass removed the [id number] from the right side of the abdomen, primary appendix cancer. pt has HIPEC surgery done/ chemo wash after appendectomy and cancer removal. colonoscopy. g-tube placment. power port placement Anesthesia Reactions: No Malignant Hyperthermia: No Significant Family History: No pertinent family hx ROS - Limitations ROS Limitations: No Limitations Constitution: REPORTS: Denies Symptoms Cardiovascular: REPORTS: Denies Cardiac Symptoms Respiratory: REPORTS: Denies Resp Symptoms Neurological: REPORTS: Denies Neuro Symptoms Gastrointestinal: REPORTS: Abdominal Pain, Nausea. DENIES: Vomitting, Diarrhea Endocrine: REPORTS: Denies Symptoms Musculoskeletal: REPORTS: Denies MS Symptoms Genitourinary: REPORTS: Denies Symptoms Eyes: REPORTS: Denies Symptoms ENT: REPORTS: Denies Symptoms Skin: REPORTS: Denies Skin Symptoms Lympathic: REPORTS: Denies Lympathic Symptoms Immunologic: POSITIVE: Denies Symptoms Psychiatric: POSITIVE: Denies Psych Symptoms Abdominal/Flank Pain PE - General Appearance General Appearance: POSITIVE: Alert, Cooperative, Anxious - HEENT HEENT: POSITIVE: Head Inspection Nml, Eyes Inspection Nml, PERRL, EOMI, Dry Mucous Membranes - Neck Neck: POSITIVE: Normal Inspection, No Apparent Injury - Respiratory Respiratory: POSITIVE: No Respiratory Distress, Breath Sounds Normal - Cardiovascular Cardiovascular: POSITIVE: Regular Rate and Rhythm, Heart Sounds Normal, Equal Pulses, Strong Pulses Peripheral Pulses: Radial (R): 2+, Radial (L): 2+ - Chest Chest: POSITIVE: Non Tender - Abdomen Abdomen: Tenderness Noted: (All Quadrants), Palpable Mass Noted: (LLQ), Guarding: (All Quadrants), Rigid: (All Quadrants) Additional Abdominal Details: Gastric tube noted - Back Back: POSITIVE: Normal Inspection. NEGATIVE: CVA Tenderness (R), CVA Tenderness (L) - Skin Skin: POSITIVE: Intact, Normal For Race, Warm, Dry - Extremities Extremity: Non-Tender: (All Extremities), Normal ROM: (All Extremities), Normal Inspection: (All Extremities) - Neurological Neurological: POSITIVE: Affect Apporpriate, Oriented X3, chair caner Normal As Tested, Motor Normal, Sensation Normal - Psychological Psychiatric: POSITIVE: Affect Appropriate, Mood Appropriate, Anxious Abdomen Progress - Results Reviewed by me Xrays/CTs/US Reviewed by me: Yes Discussed with Radiologist: No Lab Results Reviewed by Me: Yes (Labs performed at initial visit today reviewed. ) - Patient's Progress Pain Medication Addressed: POSITIVE: Yes Re-Examine Comment: Patient continues to have pain despite fentanyl patch and initial doses of dilaudid. Patient subsequently was given two more doses of dilaudid. He also required zofran for nausea. I discussed with patient that I feel he needs admission for pain and nausea control. I attempted to transfer the patient to [facility] in [place] but they do not have any bed availability. I subsequently discussed the case with the hospitalist here. Re-Examine Comment: I had lengthy discussion with patient. He would like to be admitted here in [place]. I again discussed the case with Dr. May who accepted the patient for admission. Patient will be admitted to the floor in stable and unchanged condition. Will continue to give dilaudid for pain and zofran for nausea as needed. Status: POSITIVE: Unchanged - Consult Consult (If Yes, Name of Consulting MD & Time Called): Yes (Dr. May) Consulting MD will see pt:: POSITIVE: Other (Disscussed with him about possible admission and he requested that patient be placed on DNR and hospice referral or patient should be transferred as this facility is unable to provide treatment beyond those options.) Patient Care Time - Estimated PCT Patient Care Time (In Minutes): 90 Vital Signs - VS Reviewed Vital Signs Reviewed: Yes Discharge Clinical Impression: Abdominal pain, Widespread metastatic malignant neoplastic disease, Nausea, Appendix carcinoma Discharge Disposition: Admit to Observation Condition: Fair Patient Problem(s) Reviewed: Yes Follow Up With: LORIE JIANG [Primary Care Provider] - Care Transferred To: Dr. May Date Decision to Admit to Inpatient: 01/17/19 Time Decision to Admit to Inpatient: 17:47
[2019-01-17] MEDS ORDERED: ONDANSETRON 4 MG/2 ML VIAL ONE (15:26)
[2019-01-17] MEDS ORDERED: HYDROmorphone 2 MG/1 ML ONE (15:27)
[2019-01-17] MEDS ORDERED: HYDROmorphone 2 MG/1 ML IVP ONE ×6 (15:28→20:43)
[2019-01-17] MEDS ORDERED: ONDANSETRON 4 MG/2 ML VIAL IVP ONE ×2 (15:28→17:45)
[2019-01-17] MEDS ORDERED: fentaNYL 50 MCG/ HR PATCH TRANSDERM ONE (15:52)
[2019-01-17] MEDS ORDERED: HEPARIN 500 UNIT/5 ML SYRINGE FOR CENTRAL LINE IVP ONE (16:04)
--- NOTE | 2019-01-17 22:09 | PDOC ---
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 Ortega. It was decide that he needs chemotherapy but because they wanted him to gain some weight before they started him on chemotherapy. He is on TPN since October. He is not gaining the weight that he lost yet. He Said he didn't have much pain until today when he started to have pain in the abdomen goes to his back pain was 8 out of 10 because of its he came into the ER was given pain medication and he said he felt better. Was discharged home but the pain recurred and he came back into the ER today. He was admitted for pain control. Initially the ER physician did talk to him about hospice and and DO NOT RESUSCITATE and apparently he agreed but now he on talking to me doesn't want hospice and still wants to be full code. Past Medical History Medical History: 1. Appendiceal cancer status post surgical resection complicated by urethral obstruction, HIPEC. 2. History of PEG placement in October 2018 Surgical History: 1. Those relating to appendiceal cancer. 2. Ureteral stent. 3. Partial colon removal in the setting of original diagnosis of appendiceal cancer Pertinent Family History: Has a paternal uncle who had heart disease. Parents are described as healthy Past Social History: for 17 years, has 2 children, healthy. 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 Does not smoke or drink alcohol. Tobacco Use: Former Smoker In the Past 12 Months, Have Used or Abuse Any of the Following Substance: None Medication / Allergies Home Medications: Home Medications Medication Instructions Recorded Confirmed NK 10/30/18 01/17/19 Allergies/Adverse Reactions: Allergies Allergy/AdvReac Type Severity Reaction Status Date / Time hydrocodone AdvReac Vomiting Verified 01/17/19 18:01 Review of Systems - Review of Systems All Systems: Reviewed & No Additional Complaints Except as Stated Exam - Vitals Vital Signs: Vital Signs Temperature 97.3 F Temperature Source Temporal Artery Scan Pulse Rate [Pulse Oximeter] 83 Respiratory Rate 16 Pulse Ox 96 Oxygen Delivery Method Room Air Height 6 ft Weight 136 lb - General General Appearance: Thin Additional General Exam Details: Cachectic looks tired - Head Head Exam: Normal Inspection - Eye Eye Exam: POSITIVE: Normal Appearance - ENT ENT Exam: POSITIVE: Normal Exam - Neck Neck Exam: Normal Inspection - Respiratory Respiratory Exam: POSITIVE: Clear to Auscultation - Bilaterally - Cardiovascular Cardiovascular Exam: POSITIVE: RRR - GI/Abdominal Additional GI/Abdominal Exam Details: Scar of previous operation noted, peg tube noted in place. There is a hard mass in the middle of the abdomen. Mildly tender. - Rectal Rectal Exam: POSITIVE: Deferred - External Exam: POSITIVE: Deferred - Extremities Extremities Exam: POSITIVE: Normal Inspection - Back Back Exam: POSITIVE: Normal Inspection - Neurological Neurological Exam: POSITIVE: Alert, Oriented x 3, CN II-XII Intact, No Facial Droop, Speech Intact / Clear - Psychiatric Psychiatric Exam: POSITIVE: Flat Affect Assessment and Plan - Patient Problems (1) Abdominal pain Current Visit: Yes Status: Acute Comment: Abdominal pain this looks secondary to underlying cancer. I did tell him for the time being I think we'll continue with his TPN, will write for IV pain medication, fentanyl patch. Will speak with Dr. Ortega tomorrow about his plan for the patient. I'll speak with pharmacy and see in the presence of PEG what medication they would recommend for pain control. Whether liquid morphine would work for him. If not pain control is an issue. Currently he still wants to be full code, he doesn't want to palliative care area. Is looking more for pain control. Patient is currently on TPN arrange as an outpatient continue the same. Code(s): R10.9 - Unspecified abdominal pain
[2019-01-17] MEDS ORDERED: LIDOCAINE W/ SODIUM BICARB 0.5 ML SYR SUBD PRN (22:10)
[2019-01-17] MEDS ORDERED: HYDROmorphone 2 MG/1 ML IVP PRN (22:13)
[2019-01-17] MEDS ORDERED: Acetaminophen 1000mg Inj 1,000 MG/100 ML VIAL IV PRN (22:28)
[2019-01-17] MEDS ORDERED: fentaNYL 50 MCG/ HR PATCH TRANSDERM SCH (22:30)
[2019-01-17] MEDS: HYDROmorphone 2 MG/1 ML IVP PRN (22:34)
[2019-01-18] MEDS: HYDROmorphone 2 MG/1 ML IVP PRN ×7 (01:02→18:09)
[2019-01-18] MEDS ORDERED: MORPHINE SULFATE 20 MG/1 ML ORAL SOLN PO PRN ×2 (08:04→10:15)
[2019-01-18 08:34] LABS: Hematocrit [HCT] 39.2 % (42.0-52.0); Hemoglobin [HGB] 12.7 g/dL (14.0-18.0); MEAN CORPUSCULAR HEMOGLOBIN 28.6 PG (27-31); MEAN CORPUSCULAR HGB CONC 32.4 g/dL (33-37); MEAN CORPUSCULAR VOLUME 88.3 FL (80-90); MEAN PLATELET VOLUME 10.4 FL (7.4-12.2); RED BLOOD COUNT 4.44 10^6/uL (4.70-6.10)
[2019-01-18 08:42] LABS: BLOOD UREA NITROGEN 30 mg/dL (7-22); BUN/CREATININE RATIO 42.85 (6-20); SERUM ALBUMIN 3.5 g/dL (3.5-4.8)
[2019-01-18 08:52] LABS: PLATELET MORPHOLOGY COMMENT SEE COMMENTS (NORM); RBC MORPHOLOGY COMMENT NORMAL MORPHOLOGY (NORM); WBC MORPHOLOGY COMMENT NORMAL MORPHOLOGY (NORM)
[2019-01-18 08:53] LABS: BAND NEUTROPHILS % 22 % (0-10); BASOPHILS % (MANUAL) 0 % (0-1); EOSINOPHILS % (MANUAL) 0 % (0-8); METAMYELOCYTES % 2 %; MONOCYTES % (MANUAL) 0 % (0-12); MYELOCYTES % 0 %; NEUTROPHILS % (MANUAL) 70 % (50-80); PROMYELOCYTES % 0 %
[2019-01-18] MEDS ORDERED: ENOXAPARIN SODIUM 40 MG/0.4 ML SYRINGE SUBCUT SCH (09:00)
[2019-01-18] MEDS ORDERED: Meropenem Inj 1 GM in Sodium Chloride 0.9% 100 ML IV SCH ×3 (09:00→21:00)
[2019-01-18] MEDS: Lactated Ringers 1,000 ML PRIMARY IV ONE ×2 (09:00→10:44)
--- NOTE | 2019-01-18 09:07 | EKG ---
[address] [place] [address] Measurements Intervals [place] Rate: 153 P: [place]: 0 QRS: 93 QRSD: 85 T: 69 QT: 256 QTc: 343 Interpretive Statements ATRIAL FLUTTER/TACHYCARDIA WITH RAPID VENTRICULAR RESPONSE BORDERLINE RIGHT AXIS DEVIATION ABNORMAL RHYTHM ECG Compared to ECG 11/18/2018 15:30:13 Sinus rhythm no longer present Electronically Signed On 01-18-19 10:54:22 MDT by Walter Chatman [email or web address]
[2019-01-18] MEDS ORDERED: Vancomycin-PHA to Dose IV PRN (09:16)
[2019-01-18] MEDS ORDERED: Lactated Ringers 1,000 ML PRIMARY IV SCH (09:30)
[2019-01-18] MEDS ORDERED: LIDOCAINE W/ SODIUM BICARB 0.5 ML SYR SUBD PRN (10:15)
[2019-01-18] MEDS ORDERED: Acetaminophen 1000mg Inj 1,000 MG/100 ML VIAL IV PRN (10:15)
--- NOTE | 2019-01-18 10:32 | DI ---
AP CHEST X-RAY, 01/18/2019 9:20 AM : Clinical History: Fever. Tachycardia. Previous Exam: 10/11/2017. Soft Tissues: No acute soft tissue abnormality. There is an indwelling port on the right side inserte d from the right subclavian approach and the catheter tip is in the distal right brachiocephalic vein . Bones: Normal. Heart: Normal heart size. Lungs: No infiltrates. Effusion(s): None. Mediastinum: Normal mediastinum. Nodules: No pulmonary nodules. Reading: Normal chest x-ray.
[2019-01-18] MEDS ORDERED: Sodium Chloride 0.9% 500 ML PRIMARY IV ONE (11:45)
--- NOTE | 2019-01-18 11:45 | DI ---
AP CHEST X-RAY, 01/18/2019 10:15 AM : Clinical History: Fever. Tachycardia. Previous Exam: 10/11/2017. Soft Tissues: No acute soft tissue abnormality. There is an indwelling Mediport inserted from the rig ht subclavian approach and the catheter tip is in the distal right brachiocephalic vein. Bones: Normal. Heart: Normal heart size. Lungs: No infiltrates. Effusion(s): None. Mediastinum: Normal mediastinum. Nodules: No pulmonary nodules. Reading: Normal chest x-ray.
[2019-01-18] MEDS ORDERED: Lactated Ringers 500 ML PRIMARY IV ONE (12:00)
[2019-01-18] MEDS ORDERED: Lactated Ringers 1,000 ML PRIMARY IV ONE (12:00)
[2019-01-18] MEDS ORDERED: HEPARIN 500 UNIT/5 ML SYRINGE FOR CENTRAL LINE IVP ONE (12:03)
[2019-01-18] MEDS ORDERED: Sodium Chloride 0.9% 1,000 ML PRIMARY IV SCH (12:15)
[2019-01-18] MEDS ORDERED: HEPARIN 500 UNIT/5 ML SYRINGE FOR CENTRAL LINE IVP PRN (13:09)
[2019-01-18] MEDS: Lactated Ringers 1,000 ML PRIMARY IV SCH ×2 (13:27→17:32)
--- NOTE | 2019-01-18 14:43 | DCSUMMARY ---
Hospitalization Summary Admit Date: 01/17/2019 Discharge Date: 01/18/19 Hospital Course: Transfer diagnoses 1. Sepsis 2. CT abdomen is suspicious for intra-abdominal abscess 3. 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 Status post PEG placement in October 2018 5. History of ureteral stent 6. Receiving currently home TPN 7. 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 He's been followed by an oncologist in [place] Dr. Ortega however he did not start chemotherapy yet because of nutritional status and he was getting home TPN to try to gain the weight that he lost however he did not get it back yet. He said he did not have much pain until the day of admission when he came into the ER complaining from abdominal pain he was given pain medication and was sent home. The CT of the abdomen done in the morning showed mass in the right upper quadrant at the location of the antrum and duodenum and has the appearance that may be arising from the duodenum or antrum. There is mildly enlarged lymph node in the upper abdomen. Moderate splenomegaly. He Came back to the ER because of recurrence of pain. There were no beds at [facility] so he was admitted here for pain control. Initially the ER physician did talk to him about hospice and DO NOT RESUSCITATE but after he came into the floor and discussing his condition he told me he doesn't want hospice and he still wants to be full code. We did put him on fentanyl patch and he was given IV Dilaudid overnight. In the morning when I came in to see him he was tachycardic heart rate was in the 130s, started to have a temperature of 101.3 , we repeated his labs his labs showed a white count of 17,000, 22% bands, his lactate was 2.1, blood culture was taken and we gave him boluses of fluid and started him on meropenem and vancomycin. We discontinued the home TPN. His heart rate went up to 160 sinus tachycardia but came down with the fluid to currently about 120. Blood pressure was borderline at [address] of the abdomen and pelvis and chest. CT abdomen showed There are 2 spherical fluid density lesions in the left upper quadrant measuring 6 cm in diameter that were initially thought to represent loops of small bowel on the previous study. However, in view of the clinical history, these may actually represent abdominal abscesses. also CT chest showed partial occlusion by thrombus in the distal subclavian vein and proximal portion of the right brachiocephalic vein where the Mediport catheter is located. I did speak with Dr. suarez the rug weaver at [facility] and he accepted the patient. The patient will be transferred once bed is available. For the partial occlusion by thrombus of the subclavian vein will start him on heparin drip. Laboratory Results 01/18/19 01/18/19 01/18/19 08:26 08:26 09:10 WBC 17.38 H RBC 4.44 L Hgb 12.7 L Hct 39.2 L MCV 88.3 MCH 28.6 MCHC 32.4 L RDW Std Deviation 49.2 RDW Coeff of Kimmy 15.6 H Plt Count 167 MPV 10.4 Neutrophils % (Manual) 70 Band Neutrophils % 22 H Lymphocytes % (Manual) 6 L Monocytes % (Manual) 0 Eosinophils % (Manual) 0 Basophils % (Manual) 0 Metamyelocytes % 2 Myelocytes % 0 Promyelocytes % 0 Blast Cells 0 WBC Morphology Comment Normal morphology Plt Morphology Comment See comments RBC Morph Comment Normal morphology Sodium 145 Potassium 4.6 Chloride 112 Carbon Dioxide 22 L Anion Gap 11 BUN 30 H Creatinine 0.7 Estimated GFR > 60 BUN/Creatinine Ratio 42.85 H Glucose 121 H Calculated Osmolality 306.0 H Lactic Acid 2.1 Calcium 9.1 Total Bilirubin 2.3 H AST 44 ALT 55 Alkaline Phosphatase 161 H Total Protein 6.5 Albumin 3.5 Globulin 3.0 Albumin/Globulin Ratio 1.10 L Transfer instruction Diet clear liquid Medications Active Medications Fentanyl (Duragesic Patch 50mcg) 1 each TRANSDERM Q72H MIKE Heparin Sodium (Porcine) (Heparin Lock Inj (For Central Line)) 500 unit IVP BID PRN PRN Reason: Flush Last Admin: 01/18/19 12:20 Dose: 500 unit Documented by: Hydromorphone HCl (Dilaudid Inj) 1 - 2 mg IVP Q2H PRN PRN Reason: Pain Last Admin: 01/18/19 14:56 Dose: 2 mg Documented by: Vancomycin HCl 1 gm/ Sodium (Chloride) 250 mls @ 250 mls/hr IV Q12H [facility] Last Admin: 01/18/19 10:45 Dose: 250 mls/hr Documented by: Acetaminophen (Ofirmev 1000mg Inj) 1,000 mg in 100 mls @ 400 mls/hr IV Q8H PRN PRN Reason: Pain Meropenem 1 gm/ Sodium (Chloride) 100 mls @ 200 mls/hr IV Q8H [facility] Sodium Chloride (Normal Saline 0.9%) 25 mls @ 200 mls/hr IV .Post Infusion PRN PRN Reason: Flush Lactated Ringer's (Lr) 1,000 mls @ 150 mls/hr PRIMARY IV .Q6H40M [facility] Last Admin: 01/18/19 13:27 Dose: 150 mls/hr Documented by: Lidocaine HCl (Lidocaine Buffered Inj) 0.5 ml SUBD ONCE PRN PRN Reason: IV Starts Morphine Sulfate (Msir Liquid) 20 mg PO Q3H PRN PRN Reason: Pain Last Admin: 01/18/19 13:32 Dose: 20 mg Documented by: Non-Formulary Medication (Remove Patch (Fentanyl)) 1 TRANSDERM Q72H [facility] Exam - Vitals Vital Signs: Vital Signs Temperature 98.7 F Temperature Source Oral Pulse Rate [Pulse Oximeter] 122 Pulse Rate [left hand] 125 Pulse Rate 135 Respiratory Rate 16 Blood Pressure [Right Arm] 88/67 Blood Pressure 136/95 Pulse Ox [left hand] 100 Pulse Ox 98 Oxygen Flow Rate [left hand] 1 Oxygen Flow Rate 2 Oxygen Delivery Method [left Room Air hand] Oxygen Delivery Method Room Air Height 6 ft Weight 138 lb 12.8 oz - General Additional General Exam Details: Cachectic - Head Head Exam: Normal Inspection - Eye Eye Exam: POSITIVE: Normal Appearance - ENT ENT Exam: POSITIVE: Normal Exam - Neck Neck Exam: Normal Inspection - Respiratory Respiratory Exam: POSITIVE: Clear to Auscultation - Bilaterally - Cardiovascular Cardiovascular Exam: POSITIVE: RRR, Tachycardia - GI/Abdominal GI/Abdominal Exam: POSITIVE: Normal Bowel Sounds, Non Distended Additional GI/Abdominal Exam Details: There is possibly a mass close to the umbilicus in the mid left abdomen. There is a PEG tube in place. - Rectal Rectal Exam: POSITIVE: Deferred - External Exam: POSITIVE: Deferred - Extremities Extremities Exam: POSITIVE: Normal Inspection - Back Back Exam: POSITIVE: Normal Inspection - Neurological Neurological Exam: POSITIVE: Alert, CN II-XII Intact, No Facial Droop, Moves All Extremities Equally - Psychiatric Psychiatric Exam: POSITIVE: Normal Affect Patient Problems - Patient Problem List (1) Abdominal pain Current Visit: Yes Status: Acute Code(s): R10.9 - Unspecified abdominal pain Category: Medical
--- NOTE | 2019-01-18 15:30 | DI ---
CT ANGIOGRAM OF THE CHEST, 01/18/2019 10:16 AM : Clinical History: Fever. Tachycardia. Previous Exam: None at this facility. Technique: Scans from base of neck to lung bases with IV contrast. Bolus tracking protocol was used f or timing the injection. Non-MIPS and MIPS sagittal/coronal images generated. IV Contrast: 65 mL of Ultravist 370. Flow is decreased and are in the right brachiocephalic vein seco ndary to partial occlusion by thrombus in the distal subclavian vein and proximal portion of the righ t brachiocephalic vein where the Mediport catheter is located. Base of Neck: Normal. Nodes: Normal axillary, supraclavicular, mediastinal, and hilar lymph nodes. Heart: Normal. No coronary artery calcifications. Aorta: Normal thoracic aorta. No aneurysm or dissection. Pulmonary Arteries: Normal. No pulmonary emboli or infarcts; no pulmonary hypertension. Because of di lution effect, small emboli in distal third and fourth order branches could be missed. Lungs: No infiltrates. Effusion(s): None. Nodules: None. Bony Structures: Normal visualized portions of ribs, sternum, scapulae, clavicles, and shoulders. Nor mal visualized portions of thoracic spine. READING: Normal CTA of the chest. There are no pulmonary emboli or pulmonary infarcts. Opacification of the pu lmonary arteries is limited secondary to partial occlusion of the right brachiocephalic vein as well as the tachycardia.
--- NOTE | 2019-01-18 15:47 | DI ---
CT ABDOMEN SCAN WITH IV CONTRAST, 01/18/2019 10:16 AM : Clinical History: Fever. Tachycardia. Previous intra-abdominal abscess these following surgery. Previous Exam: 01/17/2019. IV Contrast: Same bolus of contrast used for the CT angiogram of the chest. Oral Contrast: No oral contrast ordered. Rectal Contrast: No rectal contrast ordered. Lungs: No infiltrate or effusion. Liver: Normal. Gallbladder: Distended with small calcifications in the dependent portion of the gallbladder indicati ng cholelithiasis. There is no evidence of acute cholecystitis. The common duct cannot be identified but there is no intrahepatic biliary dilatation. Stomach: No distal antral mass is visualized as was suspected on the previous study. Proximal Small Bowel: In the region of the pancreatic head, there is a loop of what appears to be the duodenum in the C-loop around the head of the pancreas. The third part on the prior exam with gas-fi lled but now is liquid filled and plica circulares are visualized in this bowel. Toward the area that should represent the ligamentum of [place], there are 2 spherical structures. There is one lying ante rior to the left kidney is may be an abscess cavity. Although no gas is present, it is larger than on the prior exam. More anteriorly and medially to this lesion is a second spherical fluid collection t hat now contains gas bubbles. This patient has apparent complete gastric outlet obstruction and there fore no oral contrast could be administered. Additionally, the patient is markedly cachectic and ther e is no fat tissue planes to help delineate bowel loops. Both structures are larger than on the prior exam and measure roughly 6 cm in diameter. Adrenal Glands: Normal. Spleen: Mild splenomegaly Pancreas: Normal. Kidneys: Normal size, shape, position and contour. No hydronephrosis or hydroureter. No renal or uret eral calculi. Masses: None. Lymph Nodes: Normal. Ascites: Patient has developed minimal ascites in the left gutter since the prior exam. Free Air: None. Spine: Normal lower thoracic and lumbar spine. READIN. Technically difficult examination to evaluate because of lack of intra-abdominal fat and inabilit y to administer oral contrast. There are 2 spherical fluid density lesions in the left upper quadrant measuring 6 cm in diameter that were initially thought to represent loops of small bowel on the prev ious study. However, in view of the clinical history, these may actually represent abdominal abscesse s. A trace amount of fluid has developed in the left gutter since the previous study. 2. No mass is identified in the head of the pancreas as was suspected on the prior exam. 3. Cholelithiasis without evidence of acute cholecystitis. CT PELVIS SCAN WITH IV CONTRAST, 01/18/2019 10:16 AM: Clinical History: See above. Previous Exam: None at this facility. Contrast: Same bolus used for CT scans of the abdomen. Masses: No masses or enhancing lesions. Ascites: Fluid is present in the lower left outer. Free Air: None. Lymph Nodes: No adenopathy. Appendix: Normal. Small Bowel: Remaining small bowel appears normal. Colon: Status post right colectomy with anastomosis in the right upper quadrant. Bladder: Normal. Hernias: None. Bony Pelvis: Normal sacrum, pelvic bones, and hips. READING: Small amount of ascites in the left outer.
[2019-01-18] MEDS ORDERED: Heparin Drip 25,000 UNIT/500 ML BAG IV SCH (16:30)
[2019-01-18 18:03] VITALS: BP 88/66; RESP 16; TEMP 99; O2SAT 100
[2019-01-19] MEDS ORDERED: ENOXAPARIN SODIUM 40 MG/0.4 ML SYRINGE SUBCUT SCH (09:00)
[2019-01-19] MEDS ORDERED: AA-Dext 5%-20%/Calcium/Lytes 1,000 ML PRIMARY IV SCH (10:00)
[2019-01-20] MEDS ORDERED: fentaNYL 50 MCG/ HR PATCH TRANSDERM SCH (22:30)
== END 2019-01-18 19:03 | disposition short-term general hospital (02) | DRG 871 ==
LOC: ER 15:05 → MED/SURG 21:05 → ICU 01-18 09:23
PROVIDERS: ADMIT Internal Medicine; ATTEND Internal Medicine